=== PATIENT | male | born 1955 | race Caucasian/White ===

== ENCOUNTER → 2017-03-09 | Outpatient (CLI) | payer BC ==
[~2017-03-09] MED LIST: NORCO 325 MG-51 TAB PO; NORCO 325 MG-7.1 TAB PO; PROZAC40 MG PO
== END ==
LOC: COL.RAD 09:56
DX: M79.661 Pain in right lower leg (principal); Z96.651 Presence of right artificial knee joint

== ENCOUNTER → 2017-03-10 | Outpatient (CLI) | payer BC ==
[2017-03-10 15:01] LABS: SYNOVIAL FL. MONONUCLEAR 36.5 % (0-75); SYNOVIAL FL. POLYMORPHONUCLEAR 63.5 % (0-25); SYNOVIAL FLUID WBC 1709 /mm3 (200-600)
[2017-03-10 15:03] LABS: SYNOVIAL FLUID APPEARANCE TURBID; SYNOVIAL FLUID COLOR RED
== END ==
LOC: ZCOL.LAB 14:18
PROVIDERS: Orthopaedic Surgery
DX: M25.561 Pain in right knee (principal)

== ENCOUNTER 2021-10-06 09:59 | Emergency (ER) | payer BC ==
[~2021-10-06] VITALS: Ht 190.5 cm; Wt 93.2 kg
[2021-10-06 10:04] VITALS: TEMP 98
[2021-10-06 10:22] LABS: BASO # 0.1 K/mm3 (0.0-0.2); BASO % 0.6 % (0.0-2.0); EOS # 0.2 K/mm3 (0.0-0.7); EOS % 2.2 % (0.0-4.0); GRAN # 7.6 K/mm3 (1.4-6.5); GRAN % 72.2 % (42.2-75.2); HEMOGLOBIN 13.9 g/dl (13.5-18.0); LYMPH # 1.8 K/mm3 (1.2-3.4); LYMPH % 16.8 % (20.0-51.0); MEAN CELL VOLUME 88 fl (80.0-100.0); MEAN CORPUSCULAR HEMOGLOBIN 29 pg (27-31); MEAN CORPUSCULAR HGB CONC 33 g/dl (33.0-37.0); MEAN PLATELET VOLUME 9.9 fl (7.4-10.4); MONO # 0.8 K/mm3 (0.1-0.6); MONO % 7.8 % (1.7-9.3); PLATELET COUNT 304 K/mm3 (130-400); RED BLOOD COUNT 4.76 M/mm3 (4.20-5.60); REDCELL DISTRIBUTION WIDTH-CV 12.9 % (11.5-14.5)
[2021-10-06 10:40] LABS: ALANINE AMINOTRANSFERASE 17 U/L (0-55); ALBUMIN 3.7 gm/dL (3.4-4.8); ALKALINE PHOSPHATASE 70 U/L (40-150); ANION GAP 9 mmol/L (7-16); AST,SGOT 18 U/L (5-34); BILIRUBIN,TOTAL 0.4 mg/dL (0.2-1.2); BLOOD UREA NITROGEN 22 mg/dL (8-26); CARBON DIOXIDE 28 mmol/L (23-31); CHLORIDE 105 mmol/L (98-107); CREATININE, serum 0.93 mg/dL (0.72-1.25); GLUCOSE 66 mg/dL (70-99); LIPASE 11 U/L (8-78); POTASSIUM 4.4 mmol/L (3.5-4.5); SODIUM 142 mmol/L (136-145)
[2021-10-06 10:41] LABS: INR 1.1 (0.8-3.0); PROTHROMBIN TIME 12.3 SECONDS (9.7-12.8)
[2021-10-06 10:48] LABS: TROPONIN-I < 0.010 ng/mL (0.00-0.033)
[2021-10-06] MEDS ORDERED: PRIL40 PO (11:25)
[2021-10-06 11:44] VITALS: BP 118/73; PULSE 71
== END 2021-10-06 11:55 | disposition home or self-care (01) ==
LOC: COL.ER 09:59
PROVIDERS: Nurse Practitioner Primary Care
DX: R07.89 Other chest pain (principal); K21.9 Gastro-esophageal reflux disease without esophagitis